=== PATIENT | female | born 1945 | race Caucasian/White ===

== ENCOUNTER 2021-03-15 19:49 | Emergency (ER) | payer MEDICARE, SELFPAY ==
--- NOTE | ~2021-03-15 | CT_ITS ---
EXAMINATION: CT facial bones wo con DATE: 03/15/2021 20:32 INDICATION: Face injury. TECHNIQUE: Computed tomography (CT) of the facial bones and maxillofacial region was performed withou t intravenous contrast. Automated exposure control and iterative reconstruction technique were employ ed. The dose-length product was 266.63 mGy-cm. COMPARISON: None. FINDINGS: There are fractures of the nasal bones and nasal processes of maxilla. There is rightward d eviation of the nasal septum. There is mild mucosal thickening in the paranasal sinuses. There is sev ere cervical spondylosis. IMPRESSION: 1. Fractures of the nasal bones and nasal processes of maxilla. Reviewed, dictated and finalized at location A.
--- NOTE | ~2021-03-15 | CT_ITS ---
EXAMINATION: CT brain wo con DATE: 03/15/2021 20:32 INDICATION: Head injury. TECHNIQUE: Computed tomography (CT) of the head was performed without intravenous contrast. The mA wa s adjusted according to patient size. Iterative reconstruction technique was employed. The dose-lengt h product was 605.33 mGy-cm. COMPARISON: None FINDINGS: There are scattered areas of low attenuation in the cerebral white matter. There is no intr acranial hemorrhage, acute infarction, or abnormal intracranial mass lesion. The ventricles are deysi l in size. There is mild mucosal thickening in the ethmoid sinuses. The orbits are normal. The mastoi d air cells are normal. IMPRESSION: 1. Moderate nonspecific cerebral white matter disease, which likely represents chronic small vessel i schemic disease. Reviewed, dictated and finalized at location A. IMPRESSION: 1. Moderate nonspecific cerebral white matter disease, which likely represents chronic small vessel ischemic disease.
[2021-03-15 19:55] VITALS: BP 148/70; PULSE 59; RESP 16; TEMP 36.6; O2SAT 99
--- NOTE | 2021-03-15 19:57 | PC.NURSE ---
offered pt. gown, pt. refused to put on gown.
--- NOTE | 2021-03-15 20:32 | PC.NURSE ---
Pt to CT.
--- NOTE | 2021-03-15 20:32 | ED.FALL ---
HPI - Fall General Chief Complaint: Fall Stated Complaint: fall, broken nose Time Seen by Provider: 03/15/21 20:03 Source: patient and RN notes reviewed Mode of arrival: ambulatory Limitations: no limitations History of Present Illness HPI Narrative: This is a 75 year old female who presents for evaluation of facial injury s/p fall. She states she was walking down driveway when she fell face foward . She hit her face on concrete and she has nose bruising, swelling and epistaxis. She denies LOC, headache or dizziness. She takes aspirin 81 mg. She has some abrasion to her right palm but she denies extremity pain. She denies neck pain or back pain. Related Data Allergies Allergy/AdvReac Type Severity Reaction Status Date / Time No Known Allergies Allergy Verified 03/15/21 20:03 Review of Systems Review of Systems: All systems reviewed & are unremarkable except as noted in HPI and below PMFSH Past Medical History Medical History (Updated 03/16/21 @ 00:00 by Isabela Moore) Diabetes mellitus Gout Hypertension Surgical History Surgical History (Updated 03/15/21 @ 21:01 by Lilly Lindsey MD) No significant past surgical history Social History Social History (Updated 03/15/21 @ 21:02 by Lilly Lindsey MD) Smoking packs per day: 1 Smoking cigarettes per day: 20.0 Smoking status: Current every day smoker Gender identity (if verbalized by the patient): Female Exam Const: General: no acute distress and alert Orientation/consciousness: patient oriented x3 HENMT: Ears: external ears normal and TM's normal bilaterally General nose exam: Abnormal external nose present nasal deviation and nasal ecchymosis and Other nasal findings present (no septal hematoma) Mouth: Yes Normal oral and palatal mucosa present, Yes lip normal, Yes oropharynx normal and Yes moist mucous membranes Eyes: EOM: EOMs intact bilaterally Chest: Chest palpation & inspection: normal inspection of the chest and no tenderness Resp: Effort & Inspection: normal respiratory effort and no retractions Auscultation: clear to auscultation bilaterally Cardio: Rate: regular rate Rhythm: regular rhythm Heart sounds: no murmurs GI: GI Palp: Yes Soft to palpation, No Tenderness to palpation present (GI) and No Guarding due to palpation present (GI) Auscultation: normal bowel sounds Neuro: General: patient oriented x3, moves all extremities and CN's II-XI intact bilaterally Extrem: Other: FROM to all extremities , abrasion to right palm, no swelling or bruising Course Reevaluation(s) Reevaluation #1: I discussed with patient about CT and discharge instructions. She was also given tetanus immunization. Date: 03/15/21 Time: 21:03 Vital Signs Vital signs: Vital Signs Temperature 97.9 F 03/15/21 19:55 Pulse Rate 59 L 03/15/21 19:55 Respiratory Rate 16 03/15/21 19:55 Blood Pressure 148/70 H 03/15/21 19:55 Pulse Oximetry 99 03/15/21 19:55 Temperature 97.8 F 03/15/21 21:30 Pulse Rate 88 03/15/21 21:30 Respiratory Rate 18 03/15/21 21:30 Blood Pressure 126/78 03/15/21 21:30 Pulse Oximetry 97 03/15/21 21:30 MDM - Fall Imaging Data Radiologist's impression: ITS Impressions Head CT 03/15/21 20:34 IMPRESSION: 1. Moderate nonspecific cerebral white matter disease, which likely represents chronic small vessel ischemic disease. Face CT 03/15/21 20:36 IMPRESSION: 1. Fractures of the nasal bones and nasal processes of maxilla. Discharge Plan Discharge Clinical Impression: Fracture closed, nasal bone, CHI (closed head injury) Patient Disposition: Home, Self-Care Condition: Stable Instructions: Antibiotic Form, Nasal Fracture (ED), Abrasion (ED) Additional Instructions: Today you were found to have a broken nose. Apply ice to reduce swelling and pain. Take tylenol for your pain. You can follow up with Ear nose and throat or plastic surgeon if you f
[2021-03-15] MEDS: TETANUS,DIPHTHERIA,AC PERTUSSIS ADULT (0.5 ML) BOOSTRIX IM (20:55)
[2021-03-15 20:56] VITALS: BP 118/83; PULSE 56; RESP 16; O2SAT 100
[2021-03-15 21:30] VITALS: BP 126/78; PULSE 88; RESP 18; TEMP 36.6; O2SAT 97
== END 2021-03-15 21:30 | disposition home or self-care (01) ==
PROVIDERS: Emergency Provider General Practice
DX: S02.2XXA Fracture of nasal bones, initial encounter for closed fracture (principal); Z23 Encounter for immunization; E11.9 Type 2 diabetes mellitus without complications; M10.9 Gout, unspecified; I10 Essential (primary) hypertension; Z79.82 Long term (current) use of aspirin; F17.210 Nicotine dependence, cigarettes, uncomplicated; R90.82 White matter disease, unspecified; W01.0XXA Fall on same level from slipping, tripping and stumbling without subsequent striking against object, initial encounter
CPT/HCPCS: 70450; 70486; 90471; 90715; 99284